=== PATIENT | male | born 1990 | race Caucasian/White ===

== ENCOUNTER 2017-09-07 18:36 | Emergency (ER) | payer MEDICAID, OTHER ==
--- NOTE | 2017-09-07 20:30 | RAD ---
Indication: Rib pain. 5 views of the right ribs and dual energy PA view of the chest demonstrates no mediastinal shift. Heart is normal size and configuration. Lung drew are clear. No definite fracture is identified. IMPRESSION: No definite rib fracture is noted. No pneumothorax is noted.
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
[2017-09-07] MEDS ORDERED: Ibuprofen TAB* 600 MG PO ONE (21:04)
--- NOTE | 2017-09-07 21:46 | RAD ---
Indication: Back pain. 4 views of the lumbar spine are reviewed. The vertebral bodies appear normal in height. Disc spaces all well-preserved. There is no fracture noted. IMPRESSION: No fracture of lumbar spine is noted.
--- NOTE | 2017-09-07 21:47 | RAD ---
Indication: Thoracic spine pain. 2 views of the thoracic spine demonstrates vertebral bodies to be normal in height. Disc spaces all well-preserved. Pedicles appear intact. IMPRESSION: No fracture of the thoracic spine is noted.
[2017-09-07 22:04] VITALS: BP 122/70
== END 2017-09-07 22:04 | disposition home or self-care (01) ==
LOC: ED 18:36
DX: S40.022A Contusion of left upper arm, initial encounter (principal); S80.11XA Contusion of right lower leg, initial encounter; S30.0XXA Contusion of lower back and pelvis, initial encounter; S20.229A Contusion of unspecified back wall of thorax, initial encounter; Y04.2XXA Assault by strike against or bumped into by another person, initial encounter; Y93.9 Activity, unspecified; Y92.199 Unspecified place in other specified residential institution as the place of occurrence of the external cause; R07.81 Pleurodynia; Z87.891 Personal history of nicotine dependence
CPT/HCPCS: 72070; 72110; 99282; A9270-GY